=== PATIENT | male | born 1965 | race Caucasian/White ===

== ENCOUNTER 2017-01-21 15:05 | Emergency (ER) | payer OTHER ==
[2017-01-21 15:27] VITALS: BP 153/90; PULSE 60; TEMP 98.4; BMI 31.1
[2017-01-21] MEDS ORDERED: KETOROLAC TROMETHAMINE 60 MG/2 ML VIAL ONE (16:50)
[2017-01-21] MEDS ORDERED: CYCLOBENZAPRINE HCL 10 MG TABLET (FP) ONE (16:50)
--- NOTE | 2017-01-21 16:56 | PDOC ---
History of Present Illness - General Chief Complaint: Head/Neck problem Stated Complaint: PAIN Time Seen by Provider: 01/21/17 16:29 History Source: Patient Exam Limitations: No Limitations - History of Present Illness Initial Comments: 01/21/17 16:50 recently returned from a trip to [place], with heavy lifting and suitcases and long plane flight. States this morning woke up from a good rest but then while at the breakfast table had an onset of pain to the right side of his neck which is progressively become worse with spasm. Denies any knowledge of trauma or excessive injury. Has taken ibuprofen this morning with no relief. 01/21/17 17:19 Occurred: reports: this morning Severity: reports: mild, moderate Pain Location: reports: neck Method of Injury: Yes: unknown Modifying Factors: improves with: None Loss of Consciousness: no loss of consciousness Associated Symptoms (Fall): denies symptoms Past History - Travel Traveled outside of the country in the last 30 days: No Close contact w/someone who was outside of country & ill: No - Past Medical History Allergies/Adverse Reactions: Allergies Allergy/AdvReac Type Severity Reaction Status Date / Time No Known Allergies Allergy Verified 01/21/17 15:27 Home Medications: Ambulatory Orders Cyclobenzaprine HCl [Flexeril 10 mg] 10 mg PO BID PRN #14 tablet 01/21/17 Valsartan 320 mg PO ASDIR 01/21/17 Varenicline Tartrate [Chantix] 1 mg PO ASDIR 01/21/17 HTN: Yes - Surgical History Appendectomy: Yes - Psycho/Social/Smoking Cessation Hx Anxiety: No Suicidal Ideation: No Smoking Status: Yes Smoking History: Current every day smoker Number of Cigarettes Smoked Daily: 20 Information on smoking cessation initiated: No Hx Alcohol Use: Yes ("SOCIALLY") Drug/Substance Use Hx: No Review of Systems - Review of Systems Able to Perform ROS?: Yes Is the patient limited Swazi proficient: Yes Constitutional: Yes: Symptoms Reported, See HPI, Malaise HEENTM: Yes: See HPI. No: Symptoms Reported Respiratory: Yes: See HPI : No: Symptoms Reported Musculoskeletal: Yes: Symptoms Reported, See HPI, Muscle Pain, Neck Pain Integumentary: Yes: Symptoms Reported *Physical Exam - Vital Signs Last Vital Signs Temp Pulse Resp BP Pulse Ox 98.4 F 60 18 153/90 97 01/21/17 15:23 01/21/17 15:23 01/21/17 15:23 01/21/17 15:23 01/21/17 15:23 - Physical Exam General Appearance: Yes: Nourished, Appropriately Dressed, Apparent Distress, Mild Distress HEENT: positive: EOMI, ALON, Normal ENT Inspection, TMs Normal Neck: positive: Tender, Supple, Other (+ spasm to right SCM with pain at insertions. ). negative: Tender midline Respiratory/Chest: positive: Lungs Clear Musculoskeletal: positive: Normal Inspection, Muscle Spasm (double spasm along the right side of sternocleidomastoids with mild swelling to that same muscle belly. Reproduced tenderness that radiates down mid back scapular area. No bone tenderness, range of motion limited secondary to the spasm). negative: Vertebral Tenderness Extremity: positive: Normal Capillary Refill, Normal Inspection, Normal Range of Motion Integumentary: positive: Normal Color, Warm Neurologic: positive: ski guide II-XII NML intact, Fully Oriented, Alert, Normal Mood/ Affect, Normal Response, Motor Strength 5/5 Progress Note - Progress Note Progress Note: Torticollis, will treat with NSAIDs and cyclobenzaprine *DC/Admit/Observation/Transfer Diagnosis at time of Disposition: Torticollis - Discharge Dispostion Disposition: HOME Condition at time of disposition: Stable Admit: No - Prescriptions Prescriptions: Cyclobenzaprine HCl [Flexeril 10 mg] 10 mg PO BID PRN #14 tablet PRN Reason: spasm - Referrals Referrals: Subhash Apple PA [Primary Care Provider] - - Patient Instructions Printed Discharge Instructions: DI for Cervical Muscle Strain Additional Instructions: Rest, no heavy lifting or exercise until pain is resolved Hot soaks to neck and low back as often as possible/hot showers or Jacuzzis No massage or therapy until spasm is gone Continue ibuprofen 2-200 mg tablets every 6 hours for the next 3 days then as needed for pain and swelling Cyclobenzaprine 1-10mg every 8 hours as needed for spasm If not significant improvement within 24 hours with medication and rest regime, followup with private physician for change in medications and /or therapy. - Post Discharge Activity Work/School Note: Back to Work
[2017-01-21] MEDS ORDERED: KETOROLAC TROMETHAMINE 60 MG/2 ML VIAL IM ONE (17:04)
== END 2017-01-21 17:27 | disposition home or self-care (01) ==
LOC: JERFT 15:05
PROC: 3E0233Z Introduction of Anti-inflammatory into Muscle, Percutaneous Approach (ICD-10-PCS; principal; 2017-01-21)
DX: G24.3 Spasmodic torticollis (principal)
CPT/HCPCS: 99281-25

== ENCOUNTER 2018-06-17 01:14 | Emergency (ER) | payer OTHER ==
--- NOTE | 2018-06-17 02:48 | PDOC ---
Medical Decision Making - Medical Decision Making 06/17/18 03:21 Pt seen by Midlevel Provider under my direct supervision I agree with plan as outlined by Midlevel Provider *DC/Admit/Observation/Transfer Diagnosis at time of Disposition: Low back pain Qualifiers: Chronicity: acute Back pain laterality: right Sciatica presence: with sciatica Sciatica laterality: sciatica of right side Qualified Code(s): M54.41 - Lumbago with sciatica, right side - Discharge Dispostion Disposition: HOME Condition at time of disposition: Stable - Prescriptions Prescriptions: Cyclobenzaprine HCl [Flexeril -] 10 mg PO HS #10 tablet Ibuprofen 800 mg PO TID #30 tablet - Referrals Referrals: Philipp Elaine MD [Staff Physician] - - Patient Instructions Printed Discharge Instructions: DI for Low Back Pain Additional Instructions: You have low back pain due to a muscle spasm. Please take ibuprofen 800 mg 3 times a day not to exceed 3000 mg a day. You were also prescribed Flexeril. Please take this medication every 8 hours for the first day. Then take the medication before you go to bed. Do not drive after taking this medication as it may make you sleepy. You may use warm compresses on your back to help with her symptoms. Please follow-up with your primary care doctor. If your symptoms do not resolve in 3-5 days, follow-up with orthopedics. A referral has been provided for you. Return to the emergency department if you have worsening back pain, bladder or bowel incontinence, numbness and tingling in her legs, changes in the way you walk, or any new or worsening symptoms. - Post Discharge Activity Forms/Work/School Notes: Back to Work
[2018-06-17] MEDS ORDERED: KETOROLAC TROMETHAMINE 30 MG/1 ML VIAL IM ONE (03:02)
[2018-06-17] MEDS ORDERED: CYCLOBENZAPRINE HCL 10 MG TABLET (FP) PO ONE (03:02)
--- NOTE | 2018-06-17 03:04 | PDOC ---
History of Present Illness - General Stated Complaint: BACK PAIN Time Seen by Provider: 06/17/18 02:47 History Source: Patient Exam Limitations: No Limitations - History of Present Illness Initial Comments: 06/17/18 03:29 Patient is a 53-year-old male who presents to the emergency department today with right lower back pain and right leg pain. Patient states he bent over to corn picker some mail on the floor earlier this evening and he felt something pull in his back. He states that since then his pain has gotten worse and radiates down to his right leg. Denies fevers, chills, frequency, urgency, abdominal pain , saddle anesthesia, bladder and bowel incontinence. Past History - Travel Traveled outside of the country in the last 30 days: No Close contact w/someone who was outside of country & ill: No - Past Medical History Allergies/Adverse Reactions: Allergies Allergy/AdvReac Type Severity Reaction Status Date / Time No Known Allergies Allergy Verified 06/17/18 03:20 Home Medications: Ambulatory Orders Cyclobenzaprine HCl [Flexeril 10 mg] 10 mg PO BID PRN #14 tablet 01/21/17 Valsartan 320 mg PO ASDIR 01/21/17 Varenicline Tartrate [Chantix] 1 mg PO ASDIR 01/21/17 Cyclobenzaprine HCl [Flexeril -] 10 mg PO HS #10 tablet 06/17/18 Ibuprofen 800 mg PO TID #30 tablet 06/17/18 HTN: Yes - Surgical History Appendectomy: Yes - Suicide/Smoking/Psychosocial Hx Smoking Status: Yes Smoking History: Current every day smoker Number of Cigarettes Smoked Daily: 20 Hx Alcohol Use: Yes ("SOCIALLY") Drug/Substance Use Hx: No Review of Systems - Review of Systems Able to Perform ROS?: Yes Comments:: 06/17/18 03:02 CONSTITUTIONAL: Absent: fever, chills, diaphoresis, generalized weakness, malaise, loss of appetite GASTROINTESTINAL: Absent: abdominal pain, abdominal distension, nausea, vomiting, diarrhea, constipation, melena, hematochezia GENITOURINARY: Absent: dysuria, frequency, urgency, hesitancy, hematuria, flank pain, genital pain MUSCULOSKELETAL: Present: R lower back pain radiating to the R leg. Absent: arthralgia, joint swelling SKIN: Absent: rash, itching, pallor NEUROLOGIC: Absent: headache, focal weakness or paresthesias, dizziness, unsteady gait, seizure, mental status changes, bladder or bowel incontinence PSYCHIATRIC: Absent: anxiety, depression, suicidal or homicidal ideation, hallucinations. Is the patient limited Pashto proficient: No *Physical Exam - Physical Exam Comments: 06/17/18 03:02 GENERAL: Well developed, well nourished. Awake and alert. No acute distress. HEENT: Normocephalic, atraumatic. PERRLA, EOMI. No conjunctival pallor. Sclera are non- icteric. Moist mucous membranes. Oropharynx is clear. NECK: Supple. Full ROM. No JVD. Carotid pulses 2+ and symmetric, without bruits. No thyromegaly. No lymphadenopathy. MUSCULOSKELETAL TTP R lower back with palpable knot a the level of L5. (+) straight leg raise. Normal range of motion at all joints. No bony deformities or tenderness. No CVA tenderness. EXTREMITIES: No cyanosis. No clubbing. No edema. No calf tenderness. SKIN: Warm and dry. Normal capillary refill. No rashes. No jaundice. NEUROLOGICAL: Alert, awake, appropriate. Cranial nerves 2-12 intact. No deficits to light touch and temperature in face, upper extremities and lower extremities. No motor deficits in the in face, upper extremities and lower extremities. Normoreflexic in the upper and lower extremities. Normal speech. Toes are down- going bilaterally. Gait is normal without ataxia. PSYCHIATRIC: Cooperative. Good eye contact. Appropriate mood and affect. Medical Decision Making - Medical Decision Making 06/17/18 04:34 Patient is a 53-year-old female who presents to the emergency department today for right lower back pain. On exam patient with tenderness to palpation of the right lower back with a positive straight leg raise. No gross neurological findings. Most likely a musculoskeletal spasm. Patient treated with Toradol and Flexeril with relief of symptoms. We'll discharge home at this time. Return precautions given. Or so follow-up given. Patient understands all discharge instructions and all questions were answered. *DC/Admit/Observation/Transfer Diagnosis at time of Disposition: Low back pain Qualifiers: Chronicity: acute Back pain laterality: right Sciatica presence: with sciatica Sciatica laterality: sciatica of right side Qualified Code(s): M54.41 - Lumbago with sciatica, right side - Discharge Dispostion Disposition: HOME Condition at time of disposition: Stable Decision to Admit order: No - Prescriptions Prescriptions: Cyclobenzaprine HCl [Flexeril -] 10 mg PO HS #10 tablet Ibuprofen 800 mg PO TID #30 tablet - Referrals Referrals: Philipp Elaine MD [Staff Physician] - - Patient Instructions Printed Discharge Instructions: DI for Low Back Pain Additional Instructions: You have low back pain due to a muscle spasm. Please take ibuprofen 800 mg 3 times a day not to exceed 3000 mg a day. You were also prescribed Flexeril. Please take this medication every 8 hours for the first day. Then take the medication before you go to bed. Do not drive after taking this medication as it may make you sleepy. You may use warm compresses on your back to help with her symptoms. Please follow-up with your primary care doctor. If your symptoms do not resolve in 3-5 days, follow-up with orthopedics. A referral has been provided for you. Return to the emergency department if you have worsening back pain, bladder or bowel incontinence, numbness and tingling in her legs, changes in the way you walk, or any new or worsening symptoms. - Post Discharge Activity Forms/Work/School Notes: Back to Work
[2018-06-17 03:20] VITALS: BP 143/98; PULSE 60; TEMP 97.6; BMI 31.8
[2018-06-17] MEDS ORDERED: CYCLOBENZAPRINE HCL 10 MG TABLET (FP) ONE (03:43)
[2018-06-17] MEDS ORDERED: KETOROLAC TROMETHAMINE 30 MG/1 ML VIAL ONE (03:43)
== END 2018-06-17 04:32 | disposition home or self-care (01) ==
LOC: JER 01:14
PROC: 3E0233Z Introduction of Anti-inflammatory into Muscle, Percutaneous Approach (ICD-10-PCS; principal; 2018-06-17)
DX: M54.41 Lumbago with sciatica, right side (principal)
CPT/HCPCS: 99281-25; 99282-25

== ENCOUNTER 2018-11-10 16:11 | Emergency (ER) | payer OTHER ==
--- NOTE | 2018-11-10 16:30 | PDOC ---
Rapid Medical Evaluation Time Seen by Provider: 11/10/18 16:27 Medical Evaluation: Allergies Allergy/AdvReac Type Severity Reaction Status Date / Time No Known Allergies Allergy Verified 11/10/18 16:28 11/10/18 16:28 Chief complaint: Left leg pain and limited ROM, started after climbing down from roof x 2-3 wks ago Pertinent physical exam findings: No calf tenderness or erythema. I have ordered the following: Knee xray. Patient will proceed to the ED for further evaluation. Discharge Disposition - Diagnosis Leg pain, left - Referrals - Patient Instructions - Post Discharge Activity
[2018-11-10 16:33] VITALS: PULSE 67; TEMP 98.4; BMI 31.1
--- NOTE | 2018-11-10 17:22 | PDOC ---
History of Present Illness - General Chief Complaint: Pain, Acute Stated Complaint: LT LEG PAIN Time Seen by Provider: 11/10/18 16:27 History Source: Patient Exam Limitations: No Limitations - History of Present Illness Initial Comments: 11/10/18 17:22 Patient is a 53-year-old male who presents with 2 days of left knee pain. Patient states he was coming down a ladder off a roof when he felt the back of his left knee tightening. He states that since then it hurts to walk up the stairs and to squat. Denies falling, trauma, numbness and tingling and weakness to the extremity. Past History - Travel Traveled outside of the country in the last 30 days: No Close contact w/someone who was outside of country & ill: No - Past Medical History Allergies/Adverse Reactions: Allergies Allergy/AdvReac Type Severity Reaction Status Date / Time No Known Allergies Allergy Verified 11/10/18 16:28 Home Medications: Ambulatory Orders Losartan Potassium [Cozaar] mg PO DAILY 11/10/18 COPD: No HTN: Yes - Surgical History Appendectomy: Yes - Suicide/Smoking/Psychosocial Hx Smoking Status: Yes Smoking History: Former smoker Have you smoked in the past 12 months: No Number of Cigarettes Smoked Daily: 20 Information on smoking cessation initiated: No Hx Alcohol Use: Yes ("SOCIALLY") Drug/Substance Use Hx: No Substance Use Type: None Review of Systems - Review of Systems Able to Perform ROS?: Yes Comments:: 11/10/18 17:17 CONSTITUTIONAL: Absent: fever, chills, diaphoresis, generalized weakness, malaise, loss of appetite HEENT: Absent: rhinorrhea, nasal congestion, throat pain, throat swelling, difficulty swallowing, mouth swelling, ear pain, eye pain, visual Changes MUSCULOSKELETAL: Present: L knee pain Absent: myalgia, joint swelling SKIN: Absent: rash, itching, pallor NEUROLOGIC: Absent: headache, focal weakness or paresthesias, dizziness, unsteady gait, seizure, mental status changes, bladder or bowel incontinence PSYCHIATRIC: Absent: anxiety, depression, suicidal or homicidal ideation, hallucinations. Is the patient limited Slovenian proficient: No *Physical Exam - Vital Signs Last Vital Signs Temp Pulse Resp BP Pulse Ox 98.4 F 67 18 183/107 H 11/10/18 16:30 11/10/18 16:30 11/10/18 16:30 11/10/18 16:30 - Physical Exam Comments: 11/10/18 17:23 GENERAL: Well developed, well nourished. Awake and alert. No acute distress. MUSCULOSKELETAL (+) Cynthia's testing on the L with an inverted foot. Normal range of motion at all joints. No bony deformities or tenderness. No CVA tenderness. EXTREMITIES: No cyanosis. No clubbing. No edema. No L calf tenderness and L calf is soft. SKIN: Warm and dry. Normal capillary refill. No rashes. No jaundice. NEUROLOGICAL: Alert, awake, appropriate. Cranial nerves 2-12 intact. No deficits to light touch and temperature in face, upper extremities and lower extremities. No motor deficits in the in face, upper extremities and lower extremities. Normoreflexic in the upper and lower extremities. Normal speech. Toes are down- going bilaterally. Gait is normal without ataxia. PSYCHIATRIC: Cooperative. Good eye contact. Appropriate mood and affect. Moderate Sedation - Procedure Monitoring Vital Signs: Procedure Monitoring Vital Signs Temperature 98.4 F 11/10/18 16:30 Pulse Rate 67 11/10/18 16:30 Respiratory Rate 18 11/10/18 16:30 Blood Pressure 183/107 H 11/10/18 16:30 O2 Sat by Pulse Oximetry (%) Medical Decision Making - Medical Decision Making 11/10/18 17:24 Patient is a 53-year-old male who comes in for left knee pain for 2 days after coming down a ladder. On exam patient with a positive Shashank's test on the left side concerning for possible meniscus injury. X-rays negative for fracture or avulsion fracture. Calf is soft nontender We'll refer to orthopedics for possible meniscus injury Moustapha wrap applied Discharge home I discussed the physical exam findings, ancillary test results and final diagnoses with the patient. I answered all of the patient's questions. The patient was satisfied with the care received and felt comfortable with the discharge plan and treatment plan. The Patient agrees to follow up with the primary care physician/specialist within 24-72 hours. Return precautions were given. *DC/Admit/Observation/Transfer Diagnosis at time of Disposition: Left knee pain Qualifiers: Chronicity: acute Qualified Code(s): M25.562 - Pain in left knee - Discharge Dispostion Disposition: HOME Condition at time of disposition: Stable Decision to Admit order: No - Referrals Referrals: Roger Starkey DO [Staff Physician] - - Patient Instructions Printed Discharge Instructions: DI for Meniscal Tear Additional Instructions: You were evaluated for knee pain today. Your x-ray was negative for fracture. I suspect he may have a tear in your meniscus. Please apply ice to the knee for 20 minute intervals 3-4 times a day to help with swelling. He may take Tylenol 650 mg every 6 hours as needed for pain. Please follow up with orthopedics this week. A referral has been provided. Return to the ER for worsening pain, inability to walk, numbness and tingling to the extremity, or if you have any changes in your symptoms. - Post Discharge Activity
[2018-11-10] MEDS ORDERED: amLODIPine BESYLATE 5 MG TABLET (FP) PO ONE (17:44)
[2018-11-10] MEDS ORDERED: amLODIPine BESYLATE 5 MG TABLET (FP) ONE (17:47)
[2018-11-10 18:39] VITALS: BP 165/119
== END 2018-11-10 18:38 | disposition home or self-care (01) ==
LOC: JERFT 16:11
DX: M25.562 Pain in left knee (principal)
CPT/HCPCS: 73562-TC-LT-FY; 99281-25

== ENCOUNTER 2018-11-11 10:42 | Observation (INO) | payer OTHER ==
[2018-11-11 10:51] VITALS: BMI 31.8
--- NOTE | 2018-11-11 12:23 | PDOC ---
History of Present Illness - General History Source: Patient Exam Limitations: No Limitations - History of Present Illness Initial Comments: 11/11/18 12:23 53 year old man with a history of HTN, current 1ppd smoker who presents with elevated bp to 170s/100s. The patient came to the ED yesterday for L knee pain after which incidental elevated bp was found and was discharged with amlodipine 5mg until pcp follow up. Last night the patient took amlodipine 5mg. The am the patient only took losaratan, 500mg tylenol for L knee pain but did not take amlodipine went ot urgent care for elevated bp sent to ed, complains of headache, no vision changes ,hearing changes, no chest pain, sob, lightheadedness, no abd pain, no fever, chills at home 140/95, 175/115, 180/125 pcp: Samia Majano <Roseline Mccormick - Last Filed: 11/11/18 16:27> <Sandie Sparks - Last Filed: 11/13/18 07:32> - General Chief Complaint: Blood Pressure Problem Stated Complaint: BLOOD PRESSURE PROBLEM Time Seen by Provider: 11/11/18 11:42 Past History - Past Medical History COPD: No HTN: Yes - Surgical History Appendectomy: Yes - Suicide/Smoking/Psychosocial Hx Smoking Status: Yes Smoking History: Current every day smoker Have you smoked in the past 12 months: No Number of Cigarettes Smoked Daily: 20 Information on smoking cessation initiated: Yes Hx Alcohol Use: No Drug/Substance Use Hx: No Substance Use Type: None <Roseline Mccormick - Last Filed: 11/11/18 16:27> <Sandie Sparks - Last Filed: 11/13/18 07:32> - Past Medical History Allergies/Adverse Reactions: Allergies Allergy/AdvReac Type Severity Reaction Status Date / Time No Known Allergies Allergy Verified 11/11/18 10:45 Home Medications: Ambulatory Orders Amlodipine Besylate [Norvasc -] 5 mg PO DAILY #7 tablet 11/10/18 Losartan Potassium [Cozaar] 120 mg PO DAILY 11/10/18 Chlorthalidone [Hygroton -] 50 mg PO DAILY #10 tablet 11/12/18 Review of Systems - Review of Systems Able to Perform ROS?: Yes Is the patient limited [place] proficient: No Constitutional: No: Chills, Diaphoresis, Fever HEENTM: No: Eye Pain, Blurred Vision, Tinnitus Respiratory: No: Cough, Orthopnea, Shortness of Breath Cardiac (ROS): No: Chest Pain, Lightheadedness, Palpitations, Syncope ABD/GI: No: Constipated, Diarrhea, Nausea, Vomiting : No: Burning, Dysuria, Flank Pain, Hematuria, Incontinence Musculoskeletal: No: Muscle Pain, Muscle Weakness, Neck Pain Neurological: No: Headache, Numbness, Tingling, Weakness <Roseline Mccormick - Last Filed: 11/11/18 16:27> *Physical Exam - Vital Signs Last Vital Signs Temp Pulse Resp BP Pulse Ox 97.9 F 68 18 178/111 H 97 11/11/18 10:45 11/11/18 10:45 11/11/18 10:45 11/11/18 10:45 11/11/18 10:45 - Physical Exam Comments: 11/11/18 15:39 GENERAL: Awake, alert, and fully oriented, in no acute distress HEAD: No signs of trauma, normocephalic, atraumatic EYES: EOMI, sclera anicteric, conjunctiva clear ENT: oropharynx clear without exudates. Moist mucosa NECK: Normal ROM, supple LUNGS: No distress, speaks full sentences, clear to auscultation bilaterally HEART: Regular rate and rhythm, normal S1 and S2, no murmurs, rubs or gallops, peripheral pulses normal and equal bilaterally. ABDOMEN: Soft, nontender, normoactive bowel sounds. No guarding, no rebound. No masses EXTREMITIES : Normal inspection, Normal range of motion, no edema. No clubbing or cyanosis. NEUROLOGICAL: Cranial nerves II through XII grossly intact. Normal speech, normal gait, no focal sensorimotor deficits SKIN: Warm, Dry, normal turgor, no rashes or lesions noted <Roseline Mccormick - Last Filed: 11/11/18 16:27> - Vital Signs Last Vital Signs Temp Pulse Resp BP Pulse Ox 97.8 F 61 18 152/88 99 11/12/18 05:12 11/12/18 10:00 11/12/18 10:00 11/12/18 10:00 11/11/18 21:45 <Sandie Sparks - Last Filed: 11/13/18 07:32> Moderate Sedation - Procedure Monitoring Vital Signs: Procedure Monitoring Vital Signs Temperature 97.9 F 11/11/18 10:45 Pulse Rate 68 11/11/18 10:45 Respiratory Rate 18 11/11/18 10:45 Blood Pressure 178/111 H 11/11/18 10:45 O2 Sat by Pulse Oximetry (%) 97 11/11/18 10:45 <Roseline Mccormick - Last Filed: 11/11/18 16:27> - Procedure Monitoring Vital Signs: Procedure Monitoring Vital Signs Temperature 97.8 F 11/12/18 05:12 Pulse Rate 61 11/12/18 10:00 Respiratory Rate 18 11/12/18 10:00 Blood Pressure 152/88 11/12/18 10:00 O2 Sat by Pulse Oximetry (%) 99 11/11/18 21:45 <Sandie Sparks - Last Filed: 11/13/18 07:32> ED Treatment Course - LABORATORY CBC & Chemistry Diagram: 11/11/18 14:57 11/11/18 14:57 <Roseline Mccormick - Last Filed: 11/11/18 16:27> - LABORATORY CBC & Chemistry Diagram: 11/12/18 05:30 11/12/18 05:30 - ADDITIONAL ORDERS Additional order review: 11/11/18 14:57 RBC 4.94 MCV 86.1 MCHC 34.2 RDW 14.5 MPV 7.8 - Medications Given in the ED: ED Medications Discontinued Medications Generic Name Dose Route Start Last Admin Trade Name Freq PRN Reason Stop Dose Admin Acetaminophen 650 mg 11/11/18 12:27 11/11/18 12:33 Tylenol - PO 11/11/18 12:28 650 mg ONCE ONE Administration Acetaminophen 650 mg 11/11/18 17:19 11/12/18 10:39 Tylenol - PO 650 mg Q4H PRN Administration PAIN Alprazolam 0.25 mg 11/11/18 12:33 11/11/18 12:36 Xanax - PO 11/11/18 12:34 0.25 mg ONCE ONE Administration Amlodipine Besylate 5 mg 11/11/18 13:41 11/11/18 13:46 Norvasc - PO 11/11/18 13:42 5 mg ONCE ONE Administration Chlorthalidone 25 mg 11/11/18 17:30 11/11/18 18:07 Hygroton - PO 25 mg DAILY BRITTANY Administration Chlorthalidone 50 mg 11/12/18 08:47 11/12/18 10:40 Hygroton - PO 50 mg DAILY BRITTANY Administration Hydralazine HCl 5 mg 11/11/18 22:23 11/11/18 22:50 Apresoline Injection - IVPUSH 11/11/18 22:24 5 mg ONCE ONE Administration Ibuprofen 600 mg 11/11/18 13:40 11/11/18 13:46 Motrin - PO 11/11/18 13:41 600 mg ONCE ONE Administration Losartan Potassium 100 mg 11/12/18 10:00 11/12/18 10:40 Cozaar - PO 100 mg DAILY BRITTANY Administration Metoclopramide HCl 10 mg 11/11/18 13:40 11/11/18 13:46 Reglan - PO 11/11/18 13:41 10 mg ONCE ONE Administration <Sandie Sparks - Last Filed: 11/13/18 07:32> Medical Decision Making - Medical Decision Making ED Course: HTN without neuro deficits in the setting of recent injury likely due to pain however consider kidney dysfunction vs infection vs social stress, yet without history supporting these etiologies. blood pressure unresponsive to amlodipine Reglan, motrin, tylenol for knee pain and headache 11/11/18 14:47 patient reassessed, reports improved but present headache. BP at 183/117 on R forearm As patient without improvement of symptoms will order cbc, cmp, ekg 11/11/18 15:24 EKG: sinus jose rhythm HR 52, no interval abnormalities, narrow QRS at 106ms, ST and T wave segments and morphology normal. 11/11/18 16:27 blood pressure 167/118 patient will require admission to medicine for further evaluation and treatment of HTN <Roseline Mccormick - Last Filed: 11/11/18 16:27> *DC/Admit/Observation/Transfer - Discharge Dispostion Decision to Admit order: No <Roseline Mccormick - Last Filed: 11/11/18 16:27> - Discharge Dispostion Decision to Admit order: Yes <Sandie Sparks - Last Filed: 11/13/18 07:32> Diagnosis at time of Disposition: Hypertension Qualifiers: Hypertension type: essential hypertension Qualified Code(s): I10 - Essential ( primary) hypertension - Discharge Dispostion Condition at time of disposition: Stable
[2018-11-11] MEDS ORDERED: ACETAMINOPHEN 325 MG TABLET (FP) PO ONE (12:27)
--- NOTE | 2018-11-11 12:27 | PDOC ---
Attending Attestation - HPI HPI: 11/11/18 13:45 Mr. Дмитрий Aguilar is a 53 year old male with past medical history significant for HTN presents to the emergency department with elevated blood pressure. The patient was seen at the ED on 11/10/2017 for L. knee pain, X-ray was negative for fractures, sent home with Tylenol. During the stay, he was noted to be hypertensive and was started on 5 mg of Amlodipine and told to take if his BP increases. The patient reports last Amlodipine take was 10:00 pm last night, denies taking today. The patient reports prior to taking Losartan, he checked his BP which was noted to be within his normal limit of 140/90. However, throughout the morning, the BP kept climbing. Denies vision changes, blurry vision, CP or SOB. Denies sodium intake, deli meal intake, OTC medication use, recent sickness, cough, congestion. The patient reports taking Tylenol 500 mg at 6:30 am today for his headache. Allergies: NKDA Social history: 30 year 1 pack a day smoker, social alcohol user. No drug use reported, Surgical history: Appendectomy PCP: Humble Rudolph - Medical Decision Making 11/11/18 13:45 Documentation prepared by Malathi Oro, acting as medical office specialist for Sandie Sparks MD, /DO. <Malathi Oro - Last Filed: 11/11/18 13:45> - Resident Resident Name: Roseline Mccormick - ED Attending Attestation I have performed the following: I have examined & evaluated the patient, The case was reviewed & discussed with the resident, I agree w/resident's findings & plan - HPI HPI: at home measurements for his BP: 140/95, 175/115, 180/125 11/11/18 13:46 - Physicial Exam PE: 11/11/18 13:45 NAD, well appearing, MMM, nl conjunctiva, anicteric; neck supple. lungs clear, RRR, abdomen soft nontender. DANIELLE x4, no focal neuro deficits. No peripheral edema. normal color for ethnicity, WWP. - Medical Decision Making hpi as documented Prior notes reviewed, including admissions, discharges and consultations. VS reviewed, hypertension noted 170s/100s. no symptoms except for mild right sided headache. no AMS or focal neuro deficits. BP likely causing sx. treat headache with tylenol, motrin, reglan, xanax for anxiolysis - did not alter BP with pain treatment. trial of low dose amlodipine 5mg x1 dose, . likely autoregulating as well. no cp or sob. EKG normal sinus rhythm, no interval abnormalities, narrow QRS, ST and T wave segments and morphology normal. Nonspecific T wave abnormalities ED course: BP remained elevated despite treatment, headache still present Plan update: labs and lytes, Cr check, EKG and CT head to eval for alternative etiology for sx and persistent BP elevation despite treatment. labs wnl, Cr normal. EKG nonspecific, NSR without ischemia. CT head neg for acute abnormalities. BP rechecked multiple times with persistent elevation in diastolic BPs. no BB as HR periodically bradycardic <60. admit observation for BP control, HTN urgency. 11/11/18 16:58 <Sandie Sparks - Last Filed: 11/11/18 16:59> Heart Score/ECG Review - ECG Impressions Comment:: 11/11/18 15:25 EKG normal sinus rhythm, bradycardic at 52 bpm, no interval abnormalities, narrow QRS, ST and T wave segments and morphology normal. Nonspecific T wave abnormalities <Sandie Sparks - Last Filed: 11/11/18 16:59>
[2018-11-11] MEDS ORDERED: ALPRAZolam 0.25 MG TABLET PO ONE (12:33)
[2018-11-11] MEDS ORDERED: ALPRAZolam 0.25 MG TABLET ONE (12:34)
[2018-11-11] MEDS ORDERED: METOCLOPRAMIDE HCL 10 MG TABLET (FP) PO ONE ×2 (13:40→13:44)
[2018-11-11] MEDS ORDERED: IBUPROFEN 600 MG TABLET (FP) PO ONE ×2 (13:40→13:44)
[2018-11-11] MEDS ORDERED: amLODIPine BESYLATE 5 MG TABLET (FP) PO ONE (13:41)
[2018-11-11] MEDS ORDERED: amLODIPine BESYLATE 5 MG TABLET (FP) ONE (13:44)
[2018-11-11 15:09] LABS: HEMATOCRIT 42.5 % (35.4-49); HEMOGLOBIN 14.5 GM/dL (11.7-16.9); MCH 29.4 pg (25.7-33.7); MCHC 34.2 g/dl (32.0-35.9); MEAN CELL VOLUME 86.1 fl (80-96); MEAN PLT VOLUME 7.8 fl (7.5-11.1); PLATELET COUNT 236 K/MM3 (134-434); RBC 4.94 M/mm3 (4.00-5.60); RDW 14.5 % (11.9-15.9); WHITE BLOOD COUNT 7.2 K/mm3 (4.0-10.0)
[2018-11-11 16:33] LABS: ALBUMIN 4.2 g/dl (3.4-5.0); ALK PHOS 83 U/L (45-117); ANION GAP 4 MMOL/L (8-16); BILIRUBIN,TOTAL 0.6 mg/dL (0.2-1); BLOOD UREA NITROGEN 16 mg/dL (7-18); CALCIUM 8.7 mg/dL (8.5-10.1); CHLORIDE 104 mmol/L (98-107); CO2 30 mmol/L (21-32); GLUCOSE,RANDOM 81 mg/dL (74-106); POTASSIUM 3.6 mmol/L (3.5-5.1); SGOT/AST 14 U/L (15-37); SGPT/ALT 35 U/L (13-61); SODIUM 138 mmol/L (136-145); TOT PROT 7.6 g/dl (6.4-8.2)
[2018-11-11] MEDS ORDERED: ACETAMINOPHEN 325 MG TABLET (FP) PO PRN (17:19)
--- NOTE | 2018-11-11 17:21 | HP ---
Admitting History and Physical - Primary Care Physician PCP: Humble Majano - Admission Chief Complaint: I have hypertension History of Present Illness: Mr Aguilar is a pleasant 53 year old male who comes in with elevated blood pressure. He says he has been on losartan for over a year and he normally checks his blood pressure once a week because it is controlled with SBPs normally in the 140s. Yesterday he presented to the ED for knee pain, that work up was benign but he was noted to have elevated blood pressure. He was discharged on amlodipine 5mg daily which he took yesterday. He woke up this morning and took his losartan, however his blood pressure on checking was elevated with SBPs around 180 and DBP over 100. He also had a headache associated with it. He went to urgent care and was referred to the ER. In the ER he was given medication for his headache and amlodipine 5mg as well, however his blood pressure remained elevated. Currently he says the headache is improved. He denies fevers, chills, lightheadedness, dizziness, passing out, changes in vision, chest pain, shortness of breath, nausea, vomiting, diarrhea, constipation, difficulty or pain on urination, or swelling. History Source: Patient Limitations to Obtaining History: No Limitations - Past Medical History Cardiovascular: Yes: HTN - Past Surgical History Past Surgical History: Yes: Appendectomy - Smoking History Smoking history: Current every day smoker Have you smoked in the past 12 months: No Aproximately how many cigarettes per day: 20 - Alcohol/Substance Use Hx Alcohol Use: No History of Substance Use: reports: None - Social History ADL: Independent History of Recent Travel: No Home Medications - Allergies Allergies/Adverse Reactions: Allergies Allergy/AdvReac Type Severity Reaction Status Date / Time No Known Allergies Allergy Verified 11/11/18 10:45 - Home Medications Home Medications: Ambulatory Orders Amlodipine Besylate [Norvasc -] 5 mg PO DAILY #7 tablet 11/10/18 Losartan Potassium [Cozaar] 120 mg PO DAILY 11/10/18 Family Disease History - Family Disease History Family Disease History: Other: Father (HTN), Mother (HTN) Review of Systems Findings/Remarks: Full review of systems obtained, as per HPI and otherwise negative Physical Examination Vital Signs: Vital Signs Temperature 36.5 C 11/11/18 16:04 Pulse Rate 63 11/11/18 16:04 Respiratory Rate 18 11/11/18 16:04 Blood Pressure 165/119 H 11/11/18 16:04 O2 Sat by Pulse Oximetry (%) 100 11/11/18 16:04 Constitutional: Yes: No Distress, Calm, Obese Eyes: Yes: Conjunctiva Clear, EOM Intact, PERRL Cardiovascular: Yes: Regular Rate and Rhythm. No: Gallop, Murmur, Rub Respiratory: Yes: Regular, CTA Bilaterally. No: Rales, Rhonchi, Wheezes Gastrointestinal: Yes: Normal Bowel Sounds, Soft. No: Distention, Tenderness Extremities: Yes: WNL Edema: No Labs: CBC, BMP 11/11/18 14:57 11/11/18 16:01 Imaging - Results Cat Scan: Report Reviewed, Image Reviewed Problem List - Problems (1) Hypertension Assessment/Plan: -patient with elevated BP -will continue losartan at home dose -will add chlorthalidone 25mg, first dose today -monitor chlorthalidone, increase as needed -check bmp in am to make sure no electrolyte abnormalities -if controlled, will stop amlodipine -suspect will discharge tomorrow Code(s): I10 - ESSENTIAL (PRIMARY) HYPERTENSION Qualifiers: Hypertension type: essential hypertension Qualified Code(s): I10 - Essential (primary) hypertension
[2018-11-11] MEDS ORDERED: CHLORTHALIDONE 25 MG TABLET PO SCH (17:30)
[2018-11-11] MEDS ORDERED: hydrALAZINE HCL 20 MG/ML VIAL IVPUSH ONE (22:23)
[2018-11-12 05:14] VITALS: TEMP 97.8
[2018-11-12 07:05] LABS: ANION GAP 8 MMOL/L (8-16); BLOOD UREA NITROGEN 19 mg/dL (7-18); CALCIUM 8.1 mg/dL (8.5-10.1); CHLORIDE 107 mmol/L (98-107); CO2 25 mmol/L (21-32); CREATININE 0.8 mg/dL (0.55-1.3); GLUCOSE,RANDOM 79 mg/dL (74-106); PHOSPHOROUS 3.8 mg/dL (2.5-4.9); POTASSIUM 3.8 mmol/L (3.5-5.1); SODIUM 141 mmol/L (136-145)
[2018-11-12] MEDS ORDERED: CHLORTHALIDONE 50 MG TABLET PO SCH (07:16)
[2018-11-12 07:24] LABS: BASO % 0.8 % (0-2.0); EOS % 2.9 % (0-4.5); HEMATOCRIT 40.9 % (35.4-49); HEMOGLOBIN 14.1 GM/dL (11.7-16.9); MCH 29.7 pg (25.7-33.7); MCHC 34.5 g/dl (32.0-35.9); MEAN CELL VOLUME 85.9 fl (80-96); MEAN PLT VOLUME 8.3 fl (7.5-11.1); NEUT % 54.3 % (42.8-82.8); PLATELET COUNT 254 K/MM3 (134-434); RBC 4.76 M/mm3 (4.00-5.60); RDW 13.8 % (11.9-15.9); WHITE BLOOD COUNT 6.3 K/mm3 (4.0-10.0)
[2018-11-12] MEDS ORDERED: CHLORTHALIDONE 25 MG TABLET PO SCH (08:47)
[2018-11-12] MEDS ORDERED: LOSARTAN POTASSIUM 50 MG TABLET (FP) PO SCH (10:00)
[2018-11-12] MEDS ORDERED: PT OWN MED DRAWER 7, Y5N ONE (10:04)
--- NOTE | 2018-11-12 11:42 | DS ---
Physical Examination Vital Signs: Vital Signs Temperature 36.6 C 11/12/18 05:12 Pulse Rate 53 L 11/12/18 09:50 Respiratory Rate 18 11/12/18 09:50 Blood Pressure 142/107 H 11/12/18 09:50 O2 Sat by Pulse Oximetry (%) 99 11/11/18 21:45 Constitutional: Yes: No Distress, Calm, Obese Cardiovascular: Yes: Regular Rate and Rhythm. No: Gallop, Murmur, Rub Respiratory: Yes: Regular, CTA Bilaterally. No: Rales, Rhonchi, Wheezes Gastrointestinal: Yes: Normal Bowel Sounds, Soft. No: Distention, Tenderness Extremities: Yes: WNL Edema: No Labs: CBC, BMP 11/12/18 05:30 11/12/18 05:30 Discharge Summary Reason For Visit: HTN Current Active Problems Hypertension (Acute) Hospital Course: Mr Aguilar is a pleasant 53 year old male who was admitted under observation for poorly controlled hypertension. He had a head CT since he had a headache and it was negative. He took his valsartan as an outpatient, he was given amlodipine in the ED but did not respond. He was also given low dose chlorthalidone but still had high blood pressure, he required 1 dose of hydralazine overnight. Today his blood pressure is better controlled. He will be discharged on valsartan and chlorthalidone. He should continue taking amlodipine at night. He is to follow up with his PCP for further investigation and adjustment. Plan also discussed with daughter. 33 minutes spent in preparation of this discharge Condition: Stable - Instructions Diet, Activity, Other Instructions: You were seen in the ED for complaints of elevated blood pressure and admitted under observation for elevated blood pressure. You were placed on a new medication and this will be continued as an outpatient. Follow up with you PCP to discuss diet/exercise regimen and smoking cessation. You are stable for discharge home. Referrals: Humble Majano [Primary Care Provider] - Disposition: HOME - Home Medications Comprehensive Discharge Medication List: Ambulatory Orders Amlodipine Besylate [Norvasc -] 5 mg PO DAILY #7 tablet 11/10/18 Losartan Potassium [Cozaar] 120 mg PO DAILY 11/10/18 Chlorthalidone [Hygroton -] 50 mg PO DAILY #10 tablet 11/12/18
--- NOTE | 2018-11-12 13:16 | EKG ---
Test Reason : Blood Pressure : / mmHG Vent. Rate : 052 BPM Atrial Rate : 052 BPM P-R Int : 164 ms QRS Dur : 106 ms QT Int : 460 ms P-R-T Axes : 056 000 038 degrees QTc Int : 427 ms SINUS BRADYCARDIA NONSPECIFIC T WAVE ABNORMALITY NON-SPECIFIC INTRA-VENTRICULAR CONDUCTION DELAY ABNORMAL ECG NO PREVIOUS ECGS AVAILABLE Confirmed by LFORESITA BECKER MD ([id number]) on 11/12/2018 1:16:30 PM Referred By: Confirmed By:FLORESITA BECKER MD
[2018-11-12 13:18] VITALS: BP 152/88; PULSE 61
== END 2018-11-12 13:20 | disposition home or self-care (01) ==
LOC: JER 10:42 → JERBED 16:45 → J4W 22:01
PROVIDERS: ADMIT Internal Medicine; ATTEND Internal Medicine
PROC: 3E033GC Introduction of Other Therapeutic Substance into Peripheral Vein, Percutaneous Approach (ICD-10-PCS; principal; 2018-11-11)
DX: I10 Essential (primary) hypertension (principal); F17.210 Nicotine dependence, cigarettes, uncomplicated; R00.1 Bradycardia, unspecified
CPT/HCPCS: 36415; 70450-TC; 80048; 80053; 82962; 83735; 84100; 85025; 85027; 93005; 93010; 99284-25; G0378